=== PATIENT | male | born 1940 | race Caucasian/White ===

== ENCOUNTER → 2020-03-06 | Outpatient (CLI) | payer MEDICARE, OTHER ==
[~2020-03-06] MED LIST: APIX5TAB PO; ASPI81TA45 PO; CETI10TA26 PO; DEXL60CA2 PO; METO50TA82 PO; PROSTATE PLUS PO; TAMS-11 PO
[2020-03-06 12:41] LABS: BASOPHILS # (AUTO) 0.02 x10^3/uL (0-0.1); BASOPHILS % (AUTO) 0 % (0-1); EOSINOPHILS # (AUTO) 0.05 x10^3/uL (0-0.4); EOSINOPHILS % (AUTO) 1 % (1-7); LYMPHOCYTES # (AUTO) 1.53 x10^3/uL (1-3.4); LYMPHOCYTES % (AUTO) 27 % (22-44); MD NO; MEAN CORPUSCULAR HEMOGLOBIN 34.1 pg (27.5-34.5); MEAN CORPUSCULAR VOLUME 103.3 fL (81-97); MEAN PLATELET VOLUME 8.5 fL (7.4-10.4); MONOCYTES # (AUTO) 0.68 x10^3/uL (0.2-0.8); MONOCYTES % (AUTO) 12 % (2-9); NEUTROPHILS # (AUTO) 3.32 x10^3/uL (1.8-6.8); NEUTROPHILS % (AUTO) 59 % (42-75); PLATELET COUNT 167 x10^3/uL (130-400); RED BLOOD COUNT 4.77 x10^6/uL (4.38-5.82); RED CELL DISTRIBUTION WIDTH 13.2 % (9.4-14.8)
[2020-03-06 12:47] LABS: ANION GAP 3 mmol/L (5-15); CALCIUM 9.3 mg/dL (8.5-10.1); CHLORIDE 100 mmol/L (98-107)
[2020-03-06 12:48] LABS: CREATININE 1.25 mg/dL (0.7-1.3)
[2020-03-06 12:49] LABS: INTERNATIONAL NORMALIZED RATIO 1.09 (0.93-1.1); PROTHROMBIN TIME 11.2 Seconds (9.6-11.5)
== END | disposition home or self-care (01) ==
LOC: STAR 10:38
PROVIDERS: ATTEND Neurological Surgery
DX: Z01.818 Encounter for other preprocedural examination (principal); M48.061 Spinal stenosis, lumbar region without neurogenic claudication; I49.8 Other specified cardiac arrhythmias
CPT/HCPCS: 36415; 71046; 80048; 85025; 85610; 85730; 93005

== ENCOUNTER → 2020-03-13 | Outpatient (CLI) | payer MEDICARE, OTHER ==
[~2020-03-13] MED LIST changes: -CETI10TA26 PO; +CETI10TA76 PO
== END | disposition home or self-care (01) ==
LOC: STAR 10:10
PROVIDERS: ATTEND Anesthesiology
DX: Z01.812 Encounter for preprocedural laboratory examination (principal); Z20.828 Contact with and (suspected) exposure to other viral communicable diseases
CPT/HCPCS: 36415; 87635

== ENCOUNTER 2020-10-11 21:04 | Inpatient (IN) | payer MEDICARE, OTHER ==
[~2020-10-11] VITALS: Ht 175.3 cm; Wt 104.0 kg
[2020-10-11] MEDS ORDERED: ONDANSETRON 2MG/ML, 2ML ONE (21:50)
[2020-10-11] MEDS ORDERED: MORPHINE SULFATE 4 MG/ML, 1ML ONE ×2 (21:50→22:16)
[2020-10-11] MEDS: MORPHINE SULFATE 4 MG/ML, 1ML IVPush PRN ×2 (21:54→22:19)
[2020-10-11] MEDS ORDERED: SODIUM CHLORIDE FLUSH 10ML SYR IVF ONE (22:00)
[2020-10-11] MEDS ORDERED: SODIUM CHLORIDE 0.9% 1,000 ML IV ONE (22:00)
[2020-10-11] MEDS ORDERED: ONDANSETRON 2MG/ML, 2ML IVPush ONE (22:00)
[2020-10-11 22:25] LABS: BASOPHILS % (AUTO) 1 % (0-1); EOSINOPHILS % (AUTO) 1 % (1-7); LYMPHOCYTES % (AUTO) 26 % (22-44); MEAN CORPUSCULAR HEMOGLOBIN 33.5 pg (27.5-34.5); MEAN CORPUSCULAR HGB CONC 33.9 g/dL (33.2-36.2); MEAN PLATELET VOLUME 7.7 fL (7.4-10.4); MONOCYTES % (AUTO) 9 % (2-9); NEUTROPHILS % (AUTO) 64 % (42-75); PLATELET COUNT 165 x10^3/uL (130-400); RED BLOOD COUNT 4.71 x10^6/uL (4.38-5.82); RED CELL DISTRIBUTION WIDTH 13.5 % (9.4-14.8)
[2020-10-11 22:26] LABS: MD NO
[2020-10-11 22:34] LABS: ALBUMIN 3.2 g/dL (3.4-5.0); ANION GAP 7 mmol/L (5-15); CALCIUM 8.4 mg/dL (8.5-10.1); CHLORIDE 99 mmol/L (98-107); CREATININE 1.19 mg/dL (0.7-1.3)
[2020-10-11] MEDS ORDERED: FENTANYL PF 100 MCG/2ML IV ONE (23:00)
[2020-10-11] MEDS ORDERED: FENTANYL PF 100 MCG/2ML ONE (23:07)
[2020-10-12] VITALS (7 sets, daily range): BP systolic 117–169; BP diastolic 68–82
[2020-10-12] MEDS ORDERED: BUPIVACAINE 0.25% ONE (00:17)
--- NOTE | 2020-10-12 00:20 | NUR ---
PA AT BEDSIDE TO PERFORM NERVE BLOCK FOR PT. REPORT CALLED TO SUE. PT READY TO TRANSPORT AFTER NERVE BLOCK.
[2020-10-12] MEDS ORDERED: BUPIVACAINE 0.25% INFIL ONE (00:30)
--- NOTE | 2020-10-12 00:39 | NUR ---
HOSPITALIST AT BEDSIDE TO ASSESS
[2020-10-12] MEDS ORDERED: PROMETHAZINE 25 MG/ML, 1ML IM PRN (01:00)
[2020-10-12] MEDS ORDERED: POLYETHYLENE GLYCOL 17 GM PACKET PO PRN (01:00)
[2020-10-12] MEDS ORDERED: BISACODYL 10 MG SUPP PR PRN (01:00)
[2020-10-12] MEDS ORDERED: ONDANSETRON ODT 4 MG PO PRN (01:00)
[2020-10-12] MEDS ORDERED: LORazepam 2 MG/ML, 1ML IVPush ONE (01:00)
[2020-10-12] MEDS ORDERED: hydrALAzine 20 MG/ML, 1ML IVPush PRN (01:00)
[2020-10-12] MEDS ORDERED: ONDANSETRON 2MG/ML, 2ML IVPush PRN (01:00)
[2020-10-12] MEDS ORDERED: LORazepam 2 MG/ML, 1ML IV PRN ×5 (01:30)
[2020-10-12] MEDS ORDERED: LORazepam 1MG TABLET PO PRN ×3 (01:30)
[2020-10-12] MEDS: OXYcodone IR 5MG TABLET PO PRN ×4 (01:37→22:21)
[2020-10-12] MEDS: LORazepam 0.5MG TABLET PO PRN ×2 (01:38→17:39)
[2020-10-12] MEDS: SODIUM CHLORIDE 0.9% 1,000 ML IV SCH ×3 (01:39→13:28)
[2020-10-12] MEDS: morphine SULFATE 10 MG/ML, 1ML IVPush PRN ×2 (02:45→13:28)
[2020-10-12 05:58] LABS: BASOPHILS % (AUTO) 1 % (0-1); EOSINOPHILS % (AUTO) 0 % (1-7); LYMPHOCYTES % (AUTO) 15 % (22-44); MEAN CORPUSCULAR HEMOGLOBIN 33.1 pg (27.5-34.5); MEAN CORPUSCULAR HGB CONC 33.1 g/dL (33.2-36.2); MONOCYTES % (AUTO) 9 % (2-9); NEUTROPHILS % (AUTO) 76 % (42-75); PLATELET COUNT 162 x10^3/uL (130-400); RED BLOOD COUNT 4.62 x10^6/uL (4.38-5.82); RED CELL DISTRIBUTION WIDTH 13.3 % (9.4-14.8)
[2020-10-12 06:00] LABS: ALBUMIN 3.2 g/dL (3.4-5.0); ANION GAP 6 mmol/L (5-15); CHLORIDE 101 mmol/L (98-107)
[2020-10-12 06:07] LABS: MD NO
[2020-10-12 06:11] LABS: ALANINE AMINOTRANSFERASE 27 U/L (12-78); ALKALINE PHOSPHATASE 54 U/L (45-117); BILIRUBIN,TOTAL 0.8 mg/dL (0.2-1.0); CALCIUM 8.5 mg/dL (8.5-10.1); CHOL/HDL RATIO 2.4; CHOLESTEROL, TOTAL 139 mg/dL (140-239); CREATININE 1.15 mg/dL (0.7-1.3); HDL CHOL % 41 % (26-37); HDL CHOLESTEROL (DIRECT) 57 mg/dL (40-60); LDL CHOLESTEROL,CALCULATED 49 mg/dL (54-169); LDL/HDL RATIO 0.9 (0.5-3.0); TOTAL PROTEIN 6.4 g/dL (6.4-8.2); TRIGLYCERIDES 163 mg/dL (50-200); VLDL CHOLESTEROL 33 mg/dL (0-25)
[2020-10-12] MEDS: TAMSULOSIN 0.4 MG CAP.ER.24H PO SCH (07:27)
[2020-10-12] MEDS: METOPROLOL TARTRATE 50 MG TAB PO SCH ×2 (07:27→22:11)
[2020-10-12] MEDS: DIAZEPAM 5 MG TABLET PO SCH ×3 (07:27→22:08)
[2020-10-12] MEDS ORDERED: CHLORHEXIDINE 15 ML UDC ONE (09:40)
[2020-10-12] MEDS ORDERED: FENTANYL PF 250 MCG/5ML ONE (09:43)
[2020-10-12] MEDS ORDERED: LORazepam 2 MG/ML, 1ML IVPush PRN (10:00)
[2020-10-12] MEDS ORDERED: PROMETHAZINE 25 MG/ML, 1ML IVPush PRN (10:00)
[2020-10-12] MEDS ORDERED: CHLORHEXIDINE 15 ML UDC PO ONE (10:00)
[2020-10-12] MEDS ORDERED: HYDROmorphone 1 MG/ML, 1ML INJ IVPush PRN (10:00)
[2020-10-12] MEDS ORDERED: MEPERIDINE/PF 25MG/0.5ML IVPush PRN (10:00)
[2020-10-12] MEDS ORDERED: hydrALAzine 20 MG/ML, 1ML IV PRN (10:00)
[2020-10-12] MEDS ORDERED: LABETALOL 5MG/ML, 20ML IV PRN (10:00)
[2020-10-12] MEDS ORDERED: OXYcodone 5 MG/5 ML ORAL.SOL UDC PO PRN (10:00)
[2020-10-12] MEDS ORDERED: HALOPERIDOL 5 MG/ML IV PRN (10:00)
[2020-10-12] MEDS ORDERED: SUCCINYLCHOLINE 20 MG/ML, 10ML ONE (10:06)
[2020-10-12] MEDS ORDERED: CEFAZOLIN 1,000 MG ONE (10:06)
[2020-10-12] MEDS ORDERED: ROCURONIUM 10 MG/ML,10ML ONE (10:06)
[2020-10-12] MEDS ORDERED: DEXAMETHASONE 4 MG/ML, 1ML ONE (10:06)
[2020-10-12] MEDS ORDERED: PROPOFOL 10 MG/ML, 20ML ONE (10:06)
[2020-10-12] MEDS ORDERED: FENTANYL PF 100 MCG/2ML ONE ×2 (10:57→11:17)
[2020-10-12] MEDS: FENTANYL PF 100 MCG/2ML IV PRN ×4 (10:58→11:30)
[2020-10-12] MEDS ORDERED: OXYcodone 5 MG/5 ML ORAL.SOL UDC ONE (11:08)
[2020-10-12] MEDS: CEFAZOLIN PMX 2GM/50ML 50 ML IVPB SCH (18:33)
[2020-10-13 02:08] VITALS: BP 165/94
[2020-10-13] MEDS: LORazepam 0.5MG TABLET PO PRN ×2 (02:08→07:02)
[2020-10-13] MEDS: CEFAZOLIN PMX 2GM/50ML 50 ML IVPB SCH ×2 (02:08→10:46)
[2020-10-13] MEDS: OXYcodone IR 5MG TABLET PO PRN ×4 (02:09→23:01)
[2020-10-13 05:53] LABS: BASOPHILS % (AUTO) 0 % (0-1); EOSINOPHILS % (AUTO) 0 % (1-7); LYMPHOCYTES % (AUTO) 10 % (22-44); MEAN CORPUSCULAR HEMOGLOBIN 33.6 pg (27.5-34.5); MEAN CORPUSCULAR HGB CONC 33.5 g/dL (33.2-36.2); MEAN PLATELET VOLUME 7.8 fL (7.4-10.4); MONOCYTES % (AUTO) 8 % (2-9); NEUTROPHILS % (AUTO) 83 % (42-75); PLATELET COUNT 153 x10^3/uL (130-400); RED BLOOD COUNT 4.01 x10^6/uL (4.38-5.82); RED CELL DISTRIBUTION WIDTH 13.2 % (9.4-14.8)
[2020-10-13 05:56] LABS: MD NO
[2020-10-13 06:01] LABS: ANION GAP 9 mmol/L (5-15); CALCIUM 8.8 mg/dL (8.5-10.1); CHLORIDE 97 mmol/L (98-107); CREATININE 1.43 mg/dL (0.7-1.3)
[2020-10-13] MEDS: LACTATED RINGERS 1,000 ML IV SCH ×2 (07:02→17:17)
[2020-10-13 07:07] VITALS: BP 145/74
[2020-10-13] MEDS ORDERED: ENOXAPARIN 40 MG/0.4 ML SQ SCH (09:00)
[2020-10-13] MEDS: TAMSULOSIN 0.4 MG CAP.ER.24H PO SCH (09:27)
[2020-10-13] MEDS: DIAZEPAM 5 MG TABLET PO SCH ×3 (09:27→22:56)
[2020-10-13] MEDS: METOPROLOL TARTRATE 50 MG TAB PO SCH ×2 (09:27→20:13)
[2020-10-13] MEDS: APIXABAN 5 MG TABLET PO SCH ×2 (10:46→20:13)
[2020-10-13] MEDS: LORazepam 1MG TABLET PO PRN ×2 (11:08→14:37)
[2020-10-13 12:49] VITALS: BP 127/63
[2020-10-13 17:03] VITALS: BP 132/63
[2020-10-13 19:01] VITALS: BP 121/71
[2020-10-13 20:15] VITALS: BP 162/76
[2020-10-14 01:27] VITALS: BP 146/74
[2020-10-14] MEDS: LACTATED RINGERS 1,000 ML IV SCH (03:15)
[2020-10-14] MEDS: LORazepam 1MG TABLET PO PRN (04:51)
[2020-10-14] MEDS: OXYcodone IR 5MG TABLET PO PRN ×3 (05:03→22:52)
[2020-10-14 06:05] LABS: ANION GAP 6 mmol/L (5-15); CALCIUM 8.2 mg/dL (8.5-10.1); CHLORIDE 98 mmol/L (98-107); CREATININE 0.91 mg/dL (0.7-1.3)
[2020-10-14 07:41] VITALS: BP 127/77
[2020-10-14] MEDS: APIXABAN 5 MG TABLET PO SCH ×2 (08:53→21:45)
[2020-10-14] MEDS: METOPROLOL TARTRATE 50 MG TAB PO SCH ×2 (08:53→21:45)
[2020-10-14] MEDS: DIAZEPAM 5 MG TABLET PO SCH (08:53)
[2020-10-14] MEDS: TAMSULOSIN 0.4 MG CAP.ER.24H PO SCH (08:53)
[2020-10-14 13:59] VITALS: BP 113/67
[2020-10-14 16:39] VITALS: BP 121/71
[2020-10-14 19:05] VITALS: BP 124/73
[2020-10-14] MEDS: ACETAMINOPHEN 325 MG TABLET PO PRN (21:56)
[2020-10-15 02:22] VITALS: BP 111/67
[2020-10-15 07:43] VITALS: BP 126/73
[2020-10-15] MEDS: TAMSULOSIN 0.4 MG CAP.ER.24H PO SCH (07:47)
[2020-10-15] MEDS: ACETAMINOPHEN 325 MG TABLET PO PRN ×2 (07:47→20:24)
[2020-10-15] MEDS: METOPROLOL TARTRATE 50 MG TAB PO SCH ×2 (07:48→20:23)
[2020-10-15] MEDS: DOCUSATE 100 MG CAPSULE PO PRN ×2 (07:48→20:23)
[2020-10-15] MEDS: APIXABAN 5 MG TABLET PO SCH ×2 (07:48→20:23)
[2020-10-15] MEDS ORDERED: OXYC5TAB98 PO (10:20)
[2020-10-15] MEDS ORDERED: POLY17PO5 PO (10:20)
[2020-10-15] MEDS ORDERED: DOCU-131 PO (10:20)
[2020-10-15] MEDS: OXYcodone IR 5MG TABLET PO PRN ×3 (11:12→20:22)
[2020-10-15 13:54] VITALS: BP 106/66
[2020-10-15 16:27] VITALS: BP 136/64
[2020-10-15 20:09] VITALS: BP 127/68
[2020-10-16 01:15] VITALS: BP 132/64
[2020-10-16] MEDS: ACETAMINOPHEN 325 MG TABLET PO PRN (02:13)
[2020-10-16] MEDS: OXYcodone IR 5MG TABLET PO PRN ×2 (02:13→08:03)
[2020-10-16 07:13] VITALS: BP 114/67
[2020-10-16] MEDS: TAMSULOSIN 0.4 MG CAP.ER.24H PO SCH (08:03)
[2020-10-16] MEDS: METOPROLOL TARTRATE 50 MG TAB PO SCH (08:04)
[2020-10-16] MEDS: APIXABAN 5 MG TABLET PO SCH (08:04)
[2020-10-16 13:37] VITALS: BP 121/73
== END 2020-10-16 14:30 | DRG 481 ==
LOC: ED 21:21 → EDIP 10-12 00:19 → 3N 10-12 00:56 → 4NE 10-12 11:31
PROVIDERS: ADMIT Internal Medicine; ATTEND Hospitalist
PROC: 3E0T3BZ Introduction of Anesthetic Agent into Peripheral Nerves and Plexi, Percutaneous Approach (ICD-10-PCS; 2020-10-12)
PROC: 2W6PXZZ Traction of Left Upper Leg (ICD-10-PCS; 2020-10-12)
PROC: 0QS736Z Reposition Left Upper Femur with Intramedullary Internal Fixation Device, Percutaneous Approach (ICD-10-PCS; principal; 2020-10-12 10:00)
DX: S72.145A Nondisplaced intertrochanteric fracture of left femur, initial encounter for closed fracture (principal); F10.139 Alcohol abuse with withdrawal, unspecified; J96.11 Chronic respiratory failure with hypoxia; N17.9 Acute kidney failure, unspecified; I10 Essential (primary) hypertension; F10.120 Alcohol abuse with intoxication, uncomplicated; Z96.641 Presence of right artificial hip joint; W01.0XXA Fall on same level from slipping, tripping and stumbling without subsequent striking against object, initial encounter; Z20.822 Contact with and (suspected) exposure to COVID-19; N40.0 Benign prostatic hyperplasia without lower urinary tract symptoms; Z79.01 Long term (current) use of anticoagulants; Z86.718 Personal history of other venous thrombosis and embolism; Y93.89 Activity, other specified; Y92.098 Other place in other non-institutional residence as the place of occurrence of the external cause; Y99.8 Other external cause status
CPT/HCPCS: 36415; 71045; 76000; 80048; 80053; 80061; 80320; 82040; 83036; 83735; 84100; 84443; 85025; 87635; 93005; 96374; C1713; G0378; J0690; J1100; J2405; J2704; J3010; G0480; J0330; J2060; J2270; J7030; J7120